=== PATIENT | male | born 1950 | race Caucasian/White ===

== ENCOUNTER 2016-07-16 10:32 | Outpatient (CLI) | payer MEDICARE, OTHER | END 2016-07-16 10:33 | disposition home or self-care (01) | LOC: NC 10:32 | PROVIDERS: ATTEND Family Medicine | DX: E11.9 Type 2 diabetes mellitus without complications (principal); Z71.3 Dietary counseling and surveillance; Z68.30 Body mass index [BMI] 30.0-30.9, adult ==